=== PATIENT | female | born 1965 | race African-American/Black ===

== ENCOUNTER 2019-12-27 16:07 | Emergency (ER) | payer BC, OTHER ==
[~2019-12-27] VITALS: Ht 167.6 cm; Wt 90.7 kg
[2019-12-27 16:08] VITALS: BP 158/97
[2019-12-27] MEDS ORDERED: LIDOCAINE 1% VIAL ONE (16:11)
[2019-12-27] MEDS ORDERED: TRIPLE ANTIBIOTIC OINTMENT TP ONE ×2 (16:11→17:56)
--- NOTE | 2019-12-27 16:15 | NUR ---
ARRIVAL PATIENT ARRIVED VIA GURNEY BY [facility], EMS CALLED TO THE [facility] FOR A FALL, PATIENT STATES SHE WAS IN THE SHOWER AND WHEN SHE TURNED AROUND TO WASH HER HAIR SHE SLIPPED HITTING HER HEAD ON THE TUB, LACERATION NOTED TO THE RIGHT EYE LID, NO BLEEDING NOTED, C/O OF RIGHT SHOULDER PAIN AND NOSE PAIN FROM THE FALL, DOCTOR TIKIACKE TO THE ROOM TO SEE PATIENT. 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
--- NOTE | 2019-12-27 16:21 | NUR ---
RADIOLOGY RADIOLOGY NOTIFIED OF XRAY AND CAT SCAN ORDERS
--- NOTE | 2019-12-27 16:23 | PCM.EKG ---
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
[2019-12-27 16:30] VITALS: BP 166/95
--- NOTE | 2019-12-27 16:33 | ER.PDOC ---
General Chief Complaint: Trauma Stated Complaint: FALL Time seen by MD: 16:03 Source: patient, EMS Exam Limitations: no limitations History of Present Illness Initial Comments patient slipped getting out of Tub, and injured her right shoulder and hit her head. She was staying in a local Hotel Occurred: just prior to arrival Severity: moderate Injuries/Pain Location: head, face, upper extremity Context: Lost Balance, Slipped Loss of Consciousness: No Loss of Consciousness Modifying Factors: improves with movement Associated Symptoms: nausea/vomiting (No vomiting) Allergies: Coded Allergies: No Known Allergies (Unverified , 12/27/19) Past Medical History Medical History: no pertinent history Surgical History: no surgical history Social History Alcohol Use: none Drug Use: none Reviewed Nursing Reviewed: Vital Signs, Abn. Noted, Nursing Assessment Review of Systems Constitutional: no symptoms reported Eyes: no symptoms reported Ears, Nose, Mouth, Throat: nose pain Respiratory: no symptoms reported Cardiovascular: no symptoms reported Gastrointestinal: no symptoms reported Genitourinary: no symptoms reported Musculoskeletal: joint pain (right shoulder), neck pain Skin: other (laceration right supra orbital area) Psychiatric/Neurological: no symptoms reported All Other Systems: Reviewed and Negative Physical Exam General Appearance: WD/WN, Mild Distress, Obese Head: Contusions, Lacerations (right supraorbital area) Eyes: bilateral eye PERRL, bilateral eye EOMI, bilateral eye other (swelling from contusion right upper eyelid) Ears, Nose, Mouth, Throat: Hearing Grossly Normal, No Dental Injury, Other (mi ld tenderness of nose) Neck: Non-Tender, Normal Alignment, Normal Inspection, Limited Range of Motion Cardiovascular/Respiratory: Regular Rate, Rhythm, No M/R/G, Normal Peripheral Pulses, No JVD, Normal Breath Sounds, No Respiratory Distress Gastrointestinal: Normal Bowel Sounds, No Organomegaly, No Pulsatile Mass, Non Tender, Soft Back: Normal Inspection, No CVA Tenderness, No Vertebral Tenderness Extremities: No Evidence of Injury, Normal Range of Motion, Non-Tender, No Pedal Edema, Tenderness (right lateral shoulder) 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 as 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, No Motor/Sensory Deficits, Alert, Normal Mood/Affect, Oriented x 3 Skin: Normal Color, Warm/Dry, Other Sara Coma Score Best Eye Response: (4) Open Spontaneously Best Verbal Response: (5) Oriented Best Motor Response: (6) Obeys Commands ED LACERATION WOUND REPAIR # of Wounds/Lacerations Presen: 1 Wound Location & Length (Requi: right supraorbital Wound Length (cm): 1 Wound cleaned: betadine Anesthesia type: local Anesthesia: Lidocaine w/ Epi Volume Anesthetic (ccs): 3 Wound's Depth, Shape: superficial, linear Wound Explored: clean Wound Debrided: minimal Wound Repaired With: sutures Suture Size/Type: 5:0, prolene Suture Style: interupted Number of Sutures: 4 Sterile Dressing Applied?: Yes Results/Orders Results/Orders Orders - CHARLI ANDRADE DO Ekg-Routine (12/27/19 16:09) Ct Head Wo Contrast (12/27/19 16:09) Ct Cervical Spine (12/27/19 16:09) Ct Facial Bones Wo Contrast (12/27/19 16:09) Xr Shoulder Rt 2v (12/27/19 16:09) Lidocaine Hcl (Lidocaine 1% Vial) (12/27/19 16:11) Neomycin/Bacitracin/Polymyxinb (Triple A (12/27/19 16:11) Ketorolac Tromethamine (Toradol) (12/27/19 17:00) Ketorolac Tromethamine (Toradol) (12/27/19 17:09) Diph,Pertuss(Acell),Tet Vac/Pf (Adacel V (12/27/19 17:09) Diph,Pertuss(Acell),Tet Vac/Pf (Adacel V (12/27/19 17:30) Vital Signs Date Time Temp Pulse Resp B/P (MAP) Pulse Ox O2 Delivery O2 Flow Rate FiO2 12/27/19 17:30 16 12/27/19 17:30 98.8 91 18 142/80 (100) 97 Room Air 12/27/19 17:00 20 12/27/19 17:00 98.8 96 18 125/80 (95) 97 Room Air 12/27/19 16:30 20 12/27/19 16:30 98.8 88 20 166/95 (118) 99 Room Air 12/27/19 16:11 20 12/27/19 16:08 98.8 114 20 158/97 (117) 96 Room Air 12/27/19 16:08 98.8 114 20 12/27/19 16:08 98.8 114 20 96 Administered Medications Medications (Trade) Dose Ordered Sig/Luisa Route PRN Reason Start Time Stop Time Status Last Admin Dose Admin Diphtheria/ Tetanus/Acell Pertussis (Adacel Vial) 0.5 ml ONCE ONCE IM 12/27/19 17:30 12/27/19 17:31 DC 12/27/19 17:21 0.5 ML Ketorolac Tromethamine (Toradol) 30 mg OT PRN IV PAIN 4 - 6 12/27/19 17:00 01/01/20 16:59 12/27/19 17:21 30 MG Progress Progress Spoke with Radiologist, suspect Small extra-axial lenticular bleed. EKG/XRAY/CT/US EKG: NSR EKG Comments: FINN CT Comments: Small lenticular ICH, Consult/PCP Time Consult/PCP Called: 17:40 Consult/PCP: Spoke with Tiffanie Mar RN [facility], Dr. Dugan accepts patient in transfer Reason/Comments: ICH, Head Injury ER DEPART Departure Time of Disposition: 17:41 Disposition: 02 XFER SHT-TRM HOSP Impression: Primary Impression: Intracranial hemorrhage after injury without loss of consciousness Additional Impressions: Nasal bone fx-closed Laceration of forehead Fall Condition: Stable Duration or Time Spent with Pa: 45 Problem Qualifiers Primary Impression: Intracranial hemorrhage after injury without loss of consciousness Encounter type: initial encounter Qualified Codes: S06.300A - Unspecified focal traumatic brain injury without loss of consciousness, initial encounter Additional Impressions: Nasal bone fx-closed Encounter type: initial encounter Qualified Codes: S02.2XXA - Fracture of nasal bones, initial encounter for closed fracture Laceration of forehead Encounter type: initial encounter Qualified Codes: S01.81XA - Laceration without foreign body of other part of head, initial encounter Fall Encounter type: initial encounter Qualified Codes: W19.XXXA - Unspecified fall, initial encounter CHARLI ANDRADE DO Dec 27, 2019 16:33
--- NOTE | 2019-12-27 16:48 | NUR ---
CAT SCAN PATIENT TO CAT SCAN
[2019-12-27 17:00] VITALS: BP 125/80
[2019-12-27] MEDS ORDERED: TORADOL IV PRN (17:00)
--- NOTE | 2019-12-27 17:06 | NUR ---
CT PT BACK FROM CT.
[2019-12-27] MEDS ORDERED: ADACEL VIAL IM ONE ×2 (17:09→17:30)
[2019-12-27] MEDS ORDERED: TORADOL ONE (17:09)
--- NOTE | 2019-12-27 17:29 | DIREP ---
PROCEDURE:CT HEAD OR BRAIN W/O CONTRAST COMPARISON:[facility], CT, CT MAXILLOFACIAL W/O, 12/27/2019, 04:57 PM. INDICATIONS:fall TECHNIQUE:CT images were created without intravenous contrast. FINDINGS: VENTRICLES:The ventricles are normal in size and configuration. CEREBRUM:Thin high density along the right cerebral convexity (axial images 12 through 18) measures up to 3 mm in thickness. This is in the area frequently impacted by streak artifacts but the finding persists on multiple levels and is not related to volume averaging. Differential would include on and but primarily a small extra-axial hemorrhage should be considered. No intraparenchymal hemorrhage, no subarachnoid blood, no intraventricular hemorrhage, no midline shift. Normal cerebral morphology with appropriate figueroa white matter differentiation. CEREBELLUM:Negative. BRAINSTEM:Negative. BASAL CISTERNS:Negative. HEMORRHAGE:Yes, possible, see above MASS LESION:No ACUTE INFARCT:No SKULL:Normal. SINUSES:Mild patchy opacity and mucosal thickening in the ethmoid air cells. OTHER:None CONCLUSION: 1. Thin high density along the right cerebral convexity may represent a small extra-axial hemorrhage. This report was called by telephone at 5:26 pm on December 27, [address] Camilo Womack . Dictated by: Aster Cid MD on 12/27/2019 at 05:13 PM
[2019-12-27 17:30] VITALS: BP 142/80
--- NOTE | 2019-12-27 17:32 | DIREP ---
PROCEDURE:CT MAXILLOFACIAL W/O CONTRAST COMPARISON:None. INDICATIONS:fall TECHNIQUE:Axial CT images were created without intravenous contrast. Sagittal and coronal reformatted images are provided. FINDINGS: ORBITS:The globes are intact. No extraocular muscle entrapment is identified. No orbital wall fracture is identified. FACIAL BONES:No fracture. NASAL BONES :Bilateral nasal bone fractures. MANDIBLE:No fracture. SINUSES:Trace fluid in the bilateral maxillary sinuses. Mild mucosal thickening near the ostiomeatal units and upper portion of the maxillary sinuses. The left ostiomeatal unit is occluded. The Mild patchy opacity and mucosal thickening in the ethmoid air cells. Surrounding bone structures are intact. SOFT TISSUES:Right orbital hematoma. CONCLUSION: 1. Bilateral nasal bone fractures. 2. Right or hematoma. 3. Mild sinus disease, as above. Dictated by: Aster Cid MD on 12/27/2019 at 05:27 PM
--- NOTE | 2019-12-27 17:36 | NUR ---
[facility] DR ANDRADE ON THE PHONE WITH [facility] TRANSFER LINE.
--- NOTE | 2019-12-27 17:36 | DIREP ---
PROCEDURE:XRAY SHOULDER MIN 2 VWS-RT COMPARISON:None. INDICATIONS:fall with shoulder pain. FINDINGS: Two views of the right shoulder. No fracture or dislocation identified. Acromioclavicular and coracoclavicular distances are not widened. No radiopaque foreign body. CONCLUSION: 1. Right shoulder, unremarkable. Dictated by: Aster Cid MD on 12/27/2019 at 05:35 PM
--- NOTE | 2019-12-27 17:36 | DIREP ---
PROCEDURE: CT SPINE CERVICAL W/O COMPARISON:[facility], CT, CT MAXILLOFACIAL W/O, 12/27/2019, 04:57 PM. INDICATIONS:fall FINDINGS: ALIGNMENT:Preserved. VERTEBRAE:No fracture. PARASPINAL AREA:Normal. OTHER:Artifacts related to the patient's shoulders at the lower cervical spine. CERVICAL DISC LEVELS C2-C3:Normal. C3-C4:Normal. C4-C5:Normal. C5-C6:Normal. C6-C7:Normal. C7-T1:Normal. CONCLUSION: 1. No acute bony injury in the cervical spine. Dictated by: Aster Cid MD on 12/27/2019 at 05:31 PM
--- NOTE | 2019-12-27 17:38 | NUR ---
[facility] DOCTOR BEATRIZ ACCEPTED PATIENT AND JUAN LUIS ALLAN
--- NOTE | 2019-12-27 17:41 | NUR ---
DISPATCH DISPATCH NOTIFIED OF PATIENT TRANSFER
--- NOTE | 2019-12-27 17:44 | NUR ---
[facility] CALLED OTHER TRUCK CURRENTLY ON TRANSFER, WILL BE AVAILABLE AFTER TRUCK GETS BACK.
--- NOTE | 2019-12-27 17:51 | NUR ---
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
--- NOTE | 2019-12-27 17:51 | NUR ---
STATUS EMS CURRENTLY IN [place], OTHER EMS TRUCK WILL BE IN ROUTE AFTER THEY ARRIVAL IN [place]
[2019-12-27 18:00] VITALS: BP 113/77
--- NOTE | 2019-12-27 18:01 | NUR ---
WOUND WOUND TO THE RIGHT EYE CLEANED WITH STERILE WATER AND NEOSPORIN AND BANDAID APPLIED.
[2019-12-27 18:04] VITALS: BP_SYST 113
--- NOTE | 2019-12-27 18:04 | NUR ---
INPUT AND OUTPUT NO INTAKE OR OUTPUT AT TIME OF TRANSFER.
== END 2019-12-27 18:00 | disposition short-term general hospital (02) ==
LOC: ER 16:07
DX: S02.2XXA Fracture of nasal bones, initial encounter for closed fracture (principal); S06.300A Unspecified focal traumatic brain injury without loss of consciousness, initial encounter; S01.81XA Laceration without foreign body of other part of head, initial encounter; W01.0XXA Fall on same level from slipping, tripping and stumbling without subsequent striking against object, initial encounter; Y93.89 Activity, other specified; Y92.89 Other specified places as the place of occurrence of the external cause; Y99.8 Other external cause status
CPT/HCPCS: 12011; 70450; 70486; 72125; 73030; 90715; 93005; 96372; 96374; 99285; J1885; J2001; 90471